=== PATIENT | female | born 2000 | race Caucasian/White ===

== ENCOUNTER → 2019-09-24 | Outpatient (REF) | LOC: M LAB LCGH 14:43 | PROVIDERS: ATTEND Nurse Practitioner Family | DX: D22.9 Melanocytic nevi, unspecified (principal) ==

== ENCOUNTER → 2022-06-22 | Outpatient (REF) | payer OTHER | LOC: M LAB REF 21:33 | PROVIDERS: ATTEND Physician Assistant Medical | DX: R50.9 Fever, unspecified (principal) ==

== ENCOUNTER → 2023-06-20 | Outpatient (REF) | payer OTHER | LOC: M LAB REF 16:52 | PROVIDERS: ATTEND Family Medicine | DX: N76.0 Acute vaginitis (principal) ==

== ENCOUNTER → 2024-01-13 | Outpatient (REF) | payer OTHER | LOC: M SFHCRHEU 15:37 | PROVIDERS: ATTEND Internal Medicine | DX: L40.9 Psoriasis, unspecified (principal); M25.562 Pain in left knee ==

== ENCOUNTER → 2024-01-31 | Outpatient (CLI) | payer OTHER ==
[~2024-01-31] MED LIST: METHACHOLINE KIT (6 VIAL.NEB PREMIX) INH ONE
== END ==
LOC: M CARPUL 14:36
PROVIDERS: ATTEND Physician Assistant
DX: R05.9 Cough, unspecified (principal)

== ENCOUNTER → 2024-11-08 | Outpatient (REF) | payer OTHER | LOC: M LAB REF 16:24 | PROVIDERS: ATTEND Physician Assistant Medical | DX: B34.9 Viral infection, unspecified (principal) ==

== ENCOUNTER → 2025-10-07 | Outpatient (REF) | payer OTHER | LOC: M LAB REF 20:22 | PROVIDERS: ATTEND Physician Assistant | DX: B34.9 Viral infection, unspecified (principal) ==